=== PATIENT | male | born 1995 | race Caucasian/White ===

== ENCOUNTER 2017-07-09 01:55 | Emergency (ER) | payer SELFPAY ==
[~2017-07-09] VITALS: Ht 167.6 cm; Wt 56.4 kg
[~2017-07-09 01:55] MED LIST: CEPH-507 PO; HYDR-757 PO
--- OUTSIDE RECORDS SUMMARY | 2017-07-09 02:02 | XMS REPORT | Continuity of Care Document ---
Author Author [facility] Organization [facility] Address Unknown Phone Unavailable Allergies Active Description Code Type Severity Reaction Onset Reported/Identified Relationship to Patient Clinical Status Yes No Known Drug Allergies [id number] Drug Allergy Unknown N/ A 10/04/2007 Medications Problems Procedures Results Encounters ACCT No. Visit Date/Time Discharge Status Pt. Type Provider Facility Loc./Unit Complaint [id number] 05/25/2015 20:25:00 2014 21:03:00 DIS Emergency ELDON GROSSMAN APRN [facility] ER
[2017-07-09] MEDS ORDERED: CLINDAMYCIN 900 MG/6ML (CLEOCIN) VIAL IM ONE (02:15)
[2017-07-09] MEDS ORDERED: CEPH-507 PO (02:38)
[2017-07-09] MEDS ORDERED: SULF1TAB35 PO (02:38)
--- NOTE | 2017-07-09 02:39 | ED Integumentary General ---
General Chief Complaint: Skin/Wound Problems Stated Complaint: POSS SPIDER BITE,UPPER LEFT CALF Nursing Triage Note: c/o redness to L calf with line going up leg. patient believes that he was bit by a spider Source: patient Exam Limitations: no limitations History of Present Illness Time seen by provider: 01:59 Initial Comments This 22-year-old young man presents to the emergency room with complaints of a skin lesion on the left lateral calf with erythematous streaking that extends medially past the medial knee and up to the thigh. It is tender around the central lesion and also pruritic. He denies fever or other systemic symptoms. He thinks the lesion may have started from a flea bite or spider bite. Symptoms were just noticed yesterday morning. Allergies and Home Medications Allergies Coded Allergies: No Known Drug Allergies (Verified Allergy, Unknown, 10/04/07) Home Medications Cephalexin 500 Mg Capsule, 500 MG PO QID, #28 Prescribed by: DANA MANSFIELD on 07/09/17 0238 Sulfamethoxazole/Trimethoprim 1 Each Tablet, 1 EACH PO BID, #14 Prescribed by: DANA MANSFIELD on 07/09/17 0238 Constitutional: no symptoms reported EENTM: no symptoms reported Respiratory: no symptoms reported Cardiovascular: no symptoms reported Gastrointestinal: no symptoms reported Genitourinary: no symptoms reported Musculoskeletal: no symptoms reported Skin: see HPI Psychiatric/Neurological: No Symptoms Reported Endocrine: No Symptoms Reported Past Udtlnpj-Tpzhov-Cypzcp Hx Patient Social History Alcohol Use: Occasionally Uses Recreational Drug Use: No Smoking Status: Never a Smoker Recent Foreign Travel: No Contact w/Someone Who Travel: No Recent Infectious Disease Expo: No Recent Hopitalizations: No Physical Abuse: No Sexual Abuse: No Immunizations Up To Date Tetanus Booster (TDap): More than 5yrs Surgeries History of Surgeries: No Respiratory History of Respiratory Disorde: Yes Cardiovascular History of Cardiac Disorders: No Neurological History of Neurological Disord: No Reproductive System Hx Reproductive Disorders: No Gastrointestinal History of Gastrointestinal Di: No Musculoskeletal History of Musculoskeletal Dis: No Endocrine History of Endocrine Disorders: No Cancer History of Cancer: No Psychosocial History of Psychiatric Problem: No Suicide Risk Score: 0 Integumentary History of Skin or Integumenta: No Blood Transfusions History of Blood Disorders: No Physical Exam Vital Signs Vital Sign - Last 12Hours 07/09/17 02:02 Temp 98.0 Pulse 95 Resp 18 B/P (MAP) 162/100 Pulse Ox 100 Capillary Refill : Less Than 3 Seconds General Appearance: WD/WN, no apparent distress HEENT: normal ENT inspection Neck: normal inspection Cardiovascular: regular rate, rhythm, no edema, no murmur Respiratory: lungs clear, normal breath sounds, no respiratory distress Extremities: other (there is a circular region of erythema on the left lateral calf with central excoriation or bite. 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, no motor/sensory deficits, alert, normal mood/affect, oriented x 3 Skin: normal color, warm/dry, other (see above) Progress/Results/Core Measures Results/Orders My Orders Orders - DANA BULL MD Clindamycin Injection (Cleocin Injection (07/09/17 02:15) Medications Given in ED Current Medications Medications Dose Ordered Sig/Yashira Route Start Time Stop Time Status Last Admin Dose Admin Clindamycin Phosphate 900 mg ONCE ONCE IM 07/09/17 02:15 07/09/17 02:16 DC 07/09/17 02:28 900 MG Vital Signs/I&O Vital Sign - Last 12Hours 07/09/17 07/09/17 02:02 02:59 Temp 98.0 98.0 Pulse 95 95 Resp 18 18 B/P (MAP) 162/100 Pulse Ox 100 100 Blood Pressure Mean: 120 Progress Note : Progress Note Patient was treated with clindamycin 900 mg IM. This will be followed with prescription of Keflex and Bactrim. Departure Impression Impression: Primary Impression: Cellulitis of left leg Additional Impression: Insect bite Qualified Codes: W57.XXXA - Bitten or stung by nonvenomous insect and other nonvenomous arthropods, initial encounter Disposition: 01 HOME, SELF-CARE Condition: Improved Departure-Patient Inst. Decision time for Depature: 02:10 Referrals: GABBY NIETO MD (PCP/Family) Primary Care Physician Patient Instructions: Cellulitis (Skin Infection), Adult (DC) Add. Discharge Instructions: Your skin redness is suspicious for secondary infection related to an insect or spider bite. Complete your antibiotics as prescribed. Return to emergency room if symptoms worsen or you develop new symptoms such as nausea and vomiting , fever or chills, etc. You may take Tylenol and/or ibuprofen for pain. You may take antihistamine such as Benadryl (diphenhydramine), Claritin (loratadine) , etc. for itching. All discharge instructions reviewed with patient and/or family. Voiced understanding. Scripts Cephalexin (Keflex) 500 Mg Capsule 500 MG PO QID, #28 CAP Prov: DANA BULL MD 07/09/17 Sulfamethoxazole/Trimethoprim (Bactrim Ds Tablet) 1 Each Tablet 1 EACH PO BID, #14 TAB Prov: DANA BULL MD 07/09/17 DANA BULL MD Jul 09, 2017 02:39
[2017-07-09 02:59] VITALS: BP 162/100
== END 2017-07-09 02:57 | disposition home or self-care (01) ==
LOC: EDUNIT# 01:55 → ER 01:58
DX: S80.862A Insect bite (nonvenomous), left lower leg, initial encounter (principal); L03.116 Cellulitis of left lower limb; W57.XXXA Bitten or stung by nonvenomous insect and other nonvenomous arthropods, initial encounter
CPT/HCPCS: 96372; 99284